=== PATIENT | female | born 1960 | race Caucasian/White ===

== ENCOUNTER 2021-08-11 03:55 | Inpatient (IN) | payer BC, OTHER ==
[~2021-08-11] VITALS: Ht 160 cm; Wt 133.8 kg
--- NOTE | ~2021-08-11 | EMS ---
[address] [address] EMS Patient Care Report Name: BARBIE RIVER Room #: REG KRISTI Pendleton#: [id number] Admission: 08/11/21 Attend Phys: Discharge: Date of : 62 Report #: [id number] THIS REPORT FOR: //name// Report Transmitted: 08/11/2021 03:40 EMS Care Summary [place], [place]/[facility] Incident [id number] @ 08/11/2021 03:19 Incident Location [address] [place] [address] Patient BARBIE RIVER Female, 61 Years 1960 Patient Address [address] [place] [address] Patient History Diabetes,Hypertension (HTN),Seizures, Patient Allergies No known allergies, Patient Medications Amlodipine, Triamterene, Oxycodone, Duloxetine, Pramipexole, Sertraline, Atorvastatin, Donepezil, Chief Complaint abdominal pain Disposition Transported No Lights/[place] Dispatch Reason Abdominal Pain/Problems Transported To [facility] Narrative M41 RESPONDED TO A RESIDENCE ON A SICK. PATIENT STATES SHE'S HAD ABDOMINAL PAIN FOR ABOUT 18 HOURS. PATIENT SAYS SHE FEELS A MASS ON THE RIGHT SIDE OF HER ABDOMEN. PATIENT STATES SHE FELT BETTER AFTER SHE VOMITED. [address] [address] EMS Patient Care Report Name: BARBIE RIVER Room #: REG KRISTI Pendleton#: [id number] Admission: 08/11/21 Attend Phys: Discharge: Date of : 62 Report #: [id number] UPON EMS ARRIVAL PATIENT FOUND LAYING SUPINE ON HER COUCH. PATIENT WALKS TO COT AND IS BUCKLED IN WITH SEAT BELTS. TWO SETS OF STABLE VITALS OBTAINED EN ROUTE WITH NO SIGNIFICANT CHANGES. PATIENT TRANSFERRED SELF FROM COT TO HOSPITAL BED WITH NO ISSUES. REPORT GIVEN TO RN. RN SIGNATURE OBTAINED. PATIENT BELONGINGS LEFT WITH PATIENT. Initial Vitals @03:39P: 88,R: 16,BP: 171/74,Pain: 8/10,GCS: 15,Glucose: 131,CO: 3,SpO2: 94,Revised Trauma: 12, @03:41P: 82,R: 16,BP: 140/62,Pain: 8/10,GCS: 15,CO: 2,SpO2: 97,Revised Trauma: 12, Assessments @03:28MENTAL:No Abnormalities,SKIN:No Abnormalities,HEENT:Head/Face: No Abnormalities,Eyes: No Abnormalities,Neck/Airway: No Abnormalities,LUNG SOUNDS:Right Upper: Mass,Right Lower: Mass,Right Upper: Tenderness,Right Lower: Tenderness,General: No Abnormalities,ABDOMEN:Right Upper: Mass,Right Lower: Mass,Right Upper: Tenderness,Right Lower: Tenderness,General: No Abnormalities,PELVIS//GI:No Abnormalities,EXTREMITIES:Left Arm: No Abnormalities,Right Arm: No Abnormalities,Left Leg: No Abnormalities,Right Leg: No Abnormalities,PULSE:NEURO:No Abnormalities, Impression Abdominal Pain Procedures @03:27 ALS Assessment Response: UnchangedSucceeded @03:28 BLS Assessment Response: Unchanged Timeline 03:17,Call Received 03:17,Dispatch Notified 03:19,Dispatched 03:21,En Route 03:25,On Scene 03:27,At Patient 03:27,ALS Assessment,Response: UnchangedSucceeded, 03:28,BLS Assessment,Response: Unchanged 03:39,BP: 171/74 M,PULSE: 88,RR: 16 R,SPO2: 94 Ox,ETCO2: ,B,PAIN: 8,GCS: 15, 03:40,Depart Scene 03:41,BP: 140/62 M,PULSE: 82,RR: 16 R,SPO2: 97 Ox,ETCO2: ,BG: ,PAIN: 8,GCS: 15, 03:58,At Destination 04:14,Call Closed [facility] [address] [place] [address] EMS Patient Care Report Name: PERICOBARBIE Room #: REG KRISTI Pendleton#: [id number] Admission: 08/11/21 Attend Phys: Discharge: Date of : 62 Report #: [id number] Disclaimer [email or web address] Copyright 2020 [employer] This EMS Care Summary contains data elements from the applicable legal record (which may be displayed differently). It is designed to provide pertinent information for the following purposes: continuity of care, clinical quality, and state data reporting. The complete legal record is available to ED staff and administrators of the receiving hospital in [employer]'s Patient Tracker. All data is provided "as is."
[~2021-08-11 03:55] MED LIST: AMBIEN CR12.5 MG PO; CLONAZEPAM 0.50.5 M1 PO; HYDROCHLOROTHIA25 M2 PO; LIPITOR10 MG PO; LOTREL 10-20 M1 EACH PO; PERCOCET PO; REQUIP 1 MG TABL1 M1 PO; TOPAMAX 100 MG100 MG PO; ZOLOFT100 MG PO
[2021-08-11 03:58] VITALS: BP 151/79
[2021-08-11] MEDS ORDERED: NEURONTIN 300M300 M2 PO (04:02)
[2021-08-11] MEDS ORDERED: OXYCODONE-APAP1 EAC4 PO (04:03)
[2021-08-11] MEDS ORDERED: LIPITOR 20 MG T20 M1 PO (04:03)
[2021-08-11] MEDS ORDERED: ARICEPT10 M1 PO (04:03)
[2021-08-11] MEDS ORDERED: BENAZEPRIL HCL20 MG PO (04:04)
[2021-08-11] MEDS ORDERED: NORVASC10 MG PO (04:04)
[2021-08-11] MEDS ORDERED: PRAMIPEXOLE DI0.5 MG PO (04:11)
[2021-08-11 04:36] LABS: CALCIUM 8.9 mg/dL (8.5-10.1); CREATININE 0.8 mg/dL (0.6-1.0); POTASSIUM 3.8 mmol/L (3.5-5.1)
[2021-08-11 04:37] LABS: ABSOLUTE NEUTROPHILS 12.8 thou/uL (1.4-8.2); BASOPHILS 0.8 % (0.0-2.0); EOSINOPHILS 0.7 % (0.0-3.0); HEMATOCRIT 42.8 % (37.0-47.0); HEMOGLOBIN 13.8 gm/dL (12.0-15.0); LYMPHOCYTES 8.2 % (24.0-44.0); MCH 27.5 pg (26.0-34.0); MCHC 32.2 g/dL (28.0-37.0); MCV 85.6 fL (80.0-100.0); MONOCYTES 4.7 % (1.0-8.0); PLATELET COUNT 351 thou/uL (150-400); POLYS 85.6 % (36.0-66.0)
[2021-08-11 04:42] LABS: ALBUMIN 3.8 g/dL (3.4-5.0); TOTAL BILIRUBIN 0.6 mg/dL (0.2-1.0); TOTAL PROTEIN 7.2 g/dL (6.4-8.2)
[2021-08-11 06:14] LABS: URINE BILIRUBIN NEGATIVE (Negative); URINE BLOOD NEGATIVE (Negative); URINE CLARITY CLEAR; URINE COLOR YELLOW; URINE GLUCOSE-RANDOM* NEGATIVE (Negative); URINE KETONES NEGATIVE (Negative); URINE LEUKOCYTES-REFLEX NEGATIVE (Negative); URINE NITRITE-REFLEX NEGATIVE (Negative)
[2021-08-11 06:20] LABS: SSA (PROTEIN CONFIRMATORY) TRACE (APPROX. 5) mg/dL (Negative); URINE PROTEIN (DIPSTICK) TRACE (Negative)
--- NOTE | 2021-08-11 07:10 | EKG ---
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 Gear: SABIHA : 1960 Requested By: Anshul Mai Order Number: [id number] MD: Alhaji Vasquez Measurements Intervals [place] Rate: 79 P: 19 VT: 168 QRS: -24 QRSD: 100 T: 112 QT: 373 QTc: 428 Interpretive Statements Sinus rhythm Ventricular premature complex Abnormal R-wave progression, late transition Inferior infarct, old Lateral leads are also involved No previous ECG available for comparison Electronically Signed On 08-11-2021 7:09:46 CDT by Alhaji Vasquez [email or web address] <ELECTRONICALLY SIGNED> By: Alahji Vasquez MD, [facility] 08/11/21 0709 0423 0423 Alhaji Vasquez MD, FACC /EPI
[2021-08-11 09:25] LABS: FOLIC ACID 11.4 ng/mL (8.6-58.9)
[2021-08-11 17:16] VITALS: BP 138/77
[2021-08-11 17:37] VITALS: BP 133/86
[2021-08-11 20:53] VITALS: BP 139/72
[2021-08-11 23:06] LABS: GLYCOHEMOGLOBIN (HGB A1C) 6.9 % (4.8-5.6)
--- NOTE | 2021-08-12 05:28 | NUR ---
ASSUMED PT CARE AT 1900.PT ANXIOUS AT SHIFT CHANGE BC SHE THOUGHT THAT THE VACUUM WAS NOT FUNCTIONING.PT WAS NOTIFIED THAT IT WAS WORKING WELL.PT WITH HX OF BRAIN TUMOR,CONSTANTLY HAVING HEADACHES.MANAGED WITH MED.PER TUBE SORTER ON DUTY,PT SHOULD BE NPO,NO ICE CHIPS.PT NOTIFIED.NG TO HER R NARE,REDDISH DRAINAGE NOTED.PT SLEEPING IN THE RECLINER IN HER ROOM.CALL LIGHT WITHIN REACH.
[2021-08-12 07:48] VITALS: BP 131/97
[2021-08-12 12:40] LABS: ALBUMIN 3.8 g/dL (3.4-5.0); CALCIUM 8.6 mg/dL (8.5-10.1); CREATININE 0.7 mg/dL (0.6-1.0); MAGNESIUM 2.4 mg/dL (1.8-2.4); PHOSPHORUS 3.8 mg/dL (2.5-4.9); POTASSIUM 4.4 mmol/L (3.5-5.1); TOTAL BILIRUBIN 1.1 mg/dL (0.2-1.0); TOTAL PROTEIN 6.6 g/dL (6.4-8.2)
[2021-08-12 12:47] LABS: BASOPHILS 0.2 % (0.0-2.0); EOSINOPHILS 1.7 % (0.0-3.0); HEMOGLOBIN 13.5 gm/dL (12.0-15.0); LYMPHOCYTES 8.5 % (24.0-44.0); MCH 27.2 pg (26.0-34.0); MCHC 31.4 g/dL (28.0-37.0); MCV 86.5 fL (80.0-100.0); MONOCYTES 5.9 % (1.0-8.0); PLATELET COUNT 362 thou/uL (150-400); POLYS 83.7 % (36.0-66.0); RBC 4.97 mil/uL (4.20-5.00); RDW 15.1 % (10.5-14.5); WBC 15.5 thou/uL (4.0-11.0)
--- NOTE | 2021-08-12 15:15 | NUR ---
ASSUMED PT CARE THIS AM. PT IS ALERT & ORIENTED X4. PT HAS IV SITE ON L HAND. PT HAS NG TUBE ON R NARIS FOR DECOMPRESSION. PT IS ACCUCHECK Q6H. PT IS ON 2L NC O2. PT IS NPO. PT INFORMED LAST BM WAS YESTERDAY. PT C/O OF HEADACHE AND GIVEN PAIN MEDICATION PER PT REQUEST. NO C/O OF NAUSEA AND VOMITING. PT DAUGHTER WAS AT THE BEDSIDE. WILL CONTINUE TO MONITOR PT. FOLLOW POC.
[2021-08-12 16:10] VITALS: BP 119/66
[2021-08-12 20:50] VITALS: BP 122/88
--- NOTE | 2021-08-13 01:21 | NUR ---
PT IS A/O X4 AND IS UP WITH ASSIST TO THE BSC. C/O ABDOMINAL PAIN. PRN PAIN MEDICATION GIVEN. C/O HEADACHE. ICEPACK AND COLD WASH TOWEL PROVIDED. NG REMAINS IN PLACE AND HOOKED UP TO INTERMITTENT SUCTION. FALL PRECAUTIONS IN PLACE, CALL LIGHT IS WITHIN REACH.
[2021-08-13 03:20] VITALS: BP 146/81
[2021-08-13 07:39] VITALS: BP 147/95
[2021-08-13 10:31] LABS: ABSOLUTE NEUTROPHILS 9.1 thou/uL (1.4-8.2); EOSINOPHILS 2.9 % (0.0-3.0); HEMATOCRIT 40.2 % (37.0-47.0); HEMOGLOBIN 12.4 gm/dL (12.0-15.0); LYMPHOCYTES 13.4 % (24.0-44.0); MCH 27.1 pg (26.0-34.0); MCHC 30.9 g/dL (28.0-37.0); MCV 87.9 fL (80.0-100.0); MONOCYTES 6.7 % (1.0-8.0); PLATELET COUNT 318 thou/uL (150-400); RBC 4.57 mil/uL (4.20-5.00); RDW 15.2 % (10.5-14.5)
[2021-08-13 10:52] LABS: CALCIUM 8.2 mg/dL (8.5-10.1); CREATININE 0.7 mg/dL (0.6-1.0); MAGNESIUM 2.3 mg/dL (1.8-2.4); PHOSPHORUS 3.4 mg/dL (2.5-4.9)
--- NOTE | 2021-08-13 13:12 | NUR ---
ASSUMED PT CARE THIS AM. PT HAS BEEN NPO AND HAS NG TUBE ON R NARIS FOR DECOMPRESSION. PT HAS IV SITE ON L HAND. SENT GASTRICOCCULT SAMPLE TO LAB AND IT WAS POSITIVE. PT HAD BM TODAY AND INFORMED THIS AFTERNOON. PT C/O OF HEADACHE AND GIVEN PAIN MEDICATION PER PT REQUEST. PT DAUGHTER AT THE BEDSIDE. WILL CONTINUE TO MONITOR PT. FOLLOW POC.
[2021-08-13] MEDS ORDERED: ZONEGRAN100 MG PO (15:33)
[2021-08-13] MEDS ORDERED: CYMBALTA60 MG PO (15:40)
[2021-08-13] MEDS ORDERED: TRIAMTERENE/HCT1 CA1 PO (15:41)
[2021-08-13 16:41] VITALS: BP 130/73
[2021-08-13 20:19] VITALS: BP 129/74
[2021-08-14 07:58] VITALS: BP 150/96
--- NOTE | 2021-08-14 09:05 | NUR ---
On 08-11-21 in the ED this 61-year-old female arrived via EMS with a chief complaint of abdominal pain. The patient was admitted for and being treated for SBO and noted to have NG removed per surgery on 08-13-21. Plan is for patient to discharge home either today or tomorrow as diet being advanced and pending tolerance of diet. Notably patient is A&O x4 and ambulating without assist. Plan to discharge home with outpatient follow up and has daughter Trina Georges to assist as needed as she has been with patient throughout this stay at [phone].
[2021-08-14 15:34] VITALS: BP 133/72
[2021-08-14] MEDS ORDERED: MIRALAX17 GM PO (17:22)
[2021-08-14] MEDS ORDERED: SENOKOT8.6 MG PO (17:22)
[2021-08-14 18:27] VITALS: BP 133/72
[2021-08-14 19:32] VITALS: BP 147/62
--- NOTE | 2021-08-14 19:54 | NUR ---
Assumed pt care this am vs stable , pt is steady on her gait and did not complain of pain, nausea or vomiting the whole day. MD changed diet to a card conrtolled, small portion of meal was taken . DC orders placed, pt complained of a new onset on pain in the abdomen rating 8/10, pt is no comfportable going home. MD advised. Endorsed to the night nurse.
--- NOTE | 2021-08-15 03:42 | NUR ---
ASSESSMENT COMPLETED. PT ALERT AND ORIENTED. OBSERVED SITTING IN CHAIR. AMBULATING INDEPENDENTLY IN ROOM-STEADY GAIT NOTED.CALL LIGHT WITHIN REACH AND PT ADVISED TO CALL IF NEEDED.BOWEL SOUNDS PRESENT. PT DENIES NAUSEA OR VOMITING. PT GIVEN FENTANYL ONE TIME WITH RELIEF OF ABDOMINAL PAIN.PASSING FLATUS. ORAL MEDS TAKEN. NO FURTHER CONCERNS AT THIS TIME.
[2021-08-15 04:07] VITALS: BP 135/82
[2021-08-15 08:55] VITALS: BP 129/76
[2021-08-15 11:00] VITALS: BP 149/59
--- NOTE | 2021-08-15 14:24 | NUR ---
JULIA FROM [facility] LEFT VM ON UR LINE WITH HER DIRECT CONTACT [phone]. SHE IS AVAILABLE FOR DC PLANNING NEEDS. 4W [employer] SECURITY CONSULTANT UPDATED. EL
--- NOTE | 2021-08-15 15:37 | NUR ---
Assumed pt care this am vs stable, refused blood sugar checks stating she is not a diabetic, MD informed Pain is managed with medications partial relief is noted. Diet changed back to full liquids. Up ad aly and steady with he gait. Will monitor
[2021-08-15 16:15] VITALS: BP 133/78
[2021-08-15 19:31] VITALS: BP 125/42
--- NOTE | 2021-08-16 03:38 | NUR ---
Assumed pt care at 1900. A/OX4,pleasant. VSS.Denies N/V on assessment,pain reliefed by Percocet. Up ad aly w/o problems voiced. Passing flatus,no Bm yet. Resting w/o any distress,will continue to monitor pt.
[2021-08-16 07:28] VITALS: BP 102/52
[2021-08-16 16:09] VITALS: BP 133/72
--- NOTE | 2021-08-16 16:10 | NUR ---
CARE TEAM INDICATED THAT PT IS MEDICALLY STABLE TO DC HOME THIS DAY. PT TO DC HOME TO SELF CARE. PT'S HAS TRANSPORT HOME THIS DAY AROUND 1800. NO OTHER CM INTERVENTION INDICATED. CASE CLOSED.
[2021-08-16 16:11] VITALS: BP 127/67
--- NOTE | 2021-08-16 17:11 | NUR ---
Pt A & O x4. Pt room air. Pt received medications as ordered. Pt is independent with cares and is up ad aly. Pt received discharge orders to home. Pt discharge orders reviewed with pt and pt verbalized understanding and signed instructions. Pt awaiting ride home.
--- NOTE | 2021-08-16 18:05 | NUR ---
Pt ride arrived. Pt wheeled to enterence in wheelchair by staff with personal belongings and left hospital without incident.
== END 2021-08-16 18:38 | disposition home or self-care (01) | DRG 389 ==
LOC: ER 03:55 → 4S 07:57 → EROBS 07:57 → 4S 16:58 → 4W 08-15 06:20
PROVIDERS: Emergency Medicine; Nurse Practitioner; ADMIT Internal Medicine; ATTEND Internal Medicine
PROC: 0D9670Z Drainage of Stomach with Drainage Device, Via Natural or Artificial Opening (ICD-10-PCS; principal; 2021-08-11)
DX: K56.600 Partial intestinal obstruction, unspecified as to cause (principal); Z68.43 Body mass index [BMI] 50.0-59.9, adult; I10 Essential (primary) hypertension; G89.29 Other chronic pain; M54.9 Dorsalgia, unspecified; G25.81 Restless legs syndrome; E78.5 Hyperlipidemia, unspecified; D72.829 Elevated white blood cell count, unspecified; F11.90 Opioid use, unspecified, uncomplicated; E53.8 Deficiency of other specified B group vitamins; E11.9 Type 2 diabetes mellitus without complications; D64.9 Anemia, unspecified; E66.01 Morbid (severe) obesity due to excess calories; Z90.49 Acquired absence of other specified parts of digestive tract; Z88.2 Allergy status to sulfonamides; Z88.8 Allergy status to other drugs, medicaments and biological substances; Z20.822 Contact with and (suspected) exposure to COVID-19
CPT/HCPCS: 10040; 10195